=== PATIENT | male | born 1945 | race Caucasian/White ===

== ENCOUNTER 2017-11-13 15:10 | Emergency (ER) | payer MEDICARE, OTHER ==
[2017-11-13 15:18] VITALS: BP 159/82
[2017-11-13] MEDS ORDERED: Sodium Chloride 0.9% 10 ML Syringe FLUSH PRN (15:25)
[2017-11-13] MEDS ORDERED: Vancomycin 500 MG SDV IV ONE (15:34)
--- NOTE | 2017-11-13 16:08 | EDM.PDOC ---
ED HPI GENERAL MEDICAL PROBLEM - General Chief Complaint: Lower Extremity Injury/Pain Stated Complaint: RT LEG Time Seen by Provider: 11/13/17 16:09 Source of Information: Reports: Patient, Old Records, RN, RN Notes Reviewed History Limitations: Reports: No Limitations - History of Present Illness INITIAL COMMENTS - FREE TEXT/NARRATIVE: Patient presents to the ER with redness and increased warmth of his lower right leg. Patient noticed a flat, erythematous area of skin on his anterior right leg , that has increased in diameter in the last 24 hours. Patient is concerned about cellulitis with his history of Type 2 Diabetes mellitus and previous cellulitis infections. Denies fever, chills, and SOB. Onset: Sudden Onset Date: 11/12/17 Duration: Hour(s):, Getting Worse Location: Reports: Lower Extremity, Right Quality: Reports: Burning Severity: Moderate Improves with: Reports: None Worsens with: Reports: None Associated Symptoms: Reports: No Other Symptoms - Related Data Allergies Allergy/AdvReac Type Severity Reaction Status Date / Time acetaminophen [From Vicodin] Allergy Cannot Verified 11/13/17 16:05 Remember clonidine Allergy Cannot Verified 11/13/17 16:05 Remember hydrocodone Allergy Cannot Verified 11/13/17 16:05 Remember theophylline [From Pedro-Dur] Allergy Cannot Verified 11/13/17 16:06 Remember artificial sweeteners Allergy Cannot Uncoded 11/13/17 16:05 Remember Home Meds: Home Meds Glimepiride 4 mg PO DAILY 02/13/14 [History] Allopurinol [Zyloprim] 300 mg PO DAILY 11/13/17 [History] Bumetanide 2 mg PO DAILY 11/13/17 [History] Gabapentin [Neurontin] 600 mg PO TID 11/13/17 [History] Insulin Aspart [Novolog Flexpen] 10 units SUBCUT TID 11/13/17 [History] Insulin Detemir [Levemir Flextouch] 25 units SUBCUT DAILY 11/13/17 [History] Multivitamin [Multi-Vitamin Daily] 1 tab PO DAILY 11/13/17 [History] Sennosides [Senokot] 2 tab PO DAILY 11/13/17 [History] Triamterene/Hydrochlorothiazid [Triamterene-HCTZ 37.5-25 MG] 1 tab PO DAILY [History] Valsartan 320 mg PO DAILY 11/13/17 [History] Warfarin Sodium [Jantoven] 5 mg PO ASDIRECTED 11/13/17 [History] oxyCODONE HCl/Acetaminophen [Endocet 10-325 mg Tablet] 1 - 2 tab PO Q4HR PRN [History] Past Medical History HEENT History: Reports: Impaired Vision Cardiovascular History: Reports: Hypertension Respiratory History: Reports: SOB Gastrointestinal History: Reports: Chronic Constipation Genitourinary History: Reports: None Musculoskeletal History: Reports: Back Pain, Chronic, Osteoarthritis Neurological History: Reports: Neuropathy, Diabetic Psychiatric History: Reports: Anxiety Endocrine/Metabolic History: Reports: Diabetes, Type II, Obesity/BMI 30+ Hematologic History: Reports: Anticoagulation Therapy (INR 2.5 11/11/17) Immunologic History: Reports: Other (See Below) (Gout) Dermatologic History: Reports: Cellulitis - Past Surgical History GI Surgical History: Reports: Appendectomy, Cholecystectomy, Hernia, Abdominal Musculoskeletal Surgical History: Reports: Knee Replacement (x2) Social & Family History - Family History Family Medical History: Noncontributory - Tobacco Use Smoking Status *Q: Never Smoker Second Hand Smoke Exposure: No - Caffeine Use Caffeine Use: Reports: Coffee - Recreational Drug Use Recreational Drug Use: No - Living Situation & Occupation Living situation: Reports: , with Family Occupation: Retired Review of Systems - Review of Systems Review Of Systems: ROS reveals no pertinent complaints other than HPI. ED EXAM, GENERAL - Physical Exam Exam: See Below Exam Limited By: No Limitations General Appearance: Alert, WD/WN, No Apparent Distress Eye Exam: Bilateral Eye: EOMI, Normal Inspection Ears: Normal External Exam, Normal Canal, Hearing Grossly Normal, Normal TMs Ear Exam: Bilateral Ear: Auricle Normal, Canal Normal, TM normal Nose: Normal Inspection, Normal Mucosa, No Blood Throat/Mouth: Normal Inspection, Normal Lips, Normal Teeth, Normal Gums, Normal Oropharynx, Normal Voice, No Airway Compromise Head: Atraumatic, Normocephalic Neck: Normal Inspection, Supple, Non-Tender, Full Range of Motion Respiratory/Chest: No Respiratory Distress, Lungs Clear, Normal Breath Sounds, No Accessory Muscle Use, Chest Non-Tender, Wheezing (occasional wheeze) Cardiovascular: Normal Peripheral Pulses, Regular Rate, Rhythm, Other (Edema of Rt and L leg) GI/Abdominal: Normal Bowel Sounds, Soft, Non-Tender (Male) Exam: Deferred (not indicated ) Rectal (Males) Exam: Deferred (not indicated ) Back Exam: Normal Inspection, Full Range of Motion Extremities: Normal Inspection, Pedal Edema, Redness (lower right leg, increased warmth compared to left leg ) Neurological: Alert, Oriented, Normal Cognition, No Motor/Sensory Deficits Psychiatric: Normal Affect, Normal Mood Skin Exam: Warm, Dry, Increased Warmth (lower right leg ) Lymphatic: No Adenopathy Course - Vital Signs Last Recorded V/S: Last Vital Signs Temp 36.5 C 11/13/17 15:17 Pulse 83 11/13/17 15:17 Resp 20 11/13/17 15:17 BP 159/82 H 11/13/17 15:17 Pulse Ox 94 L 11/13/17 15:17 - Orders/Labs/Meds Orders: Active Orders 24 hr Category Date Time Status Peripheral IV Care [RC] . DIRECTED Care 11/13/17 15:25 Active CULTURE BLOOD [BC] Stat Lab 11/13/17 15:35 Received CULTURE BLOOD [BC] Stat Lab 11/13/17 15:41 Received Sodium Chloride 0.9% [Saline Flush] Med 11/13/17 15:25 Active 10 ml FLUSH ASDIRECTED PRN Blood Culture x2 Reflex Set [OM.PC] Stat Oth 11/13/17 15:25 Ordered Peripheral IV Insertion Adult [OM.PC] Stat Oth 11/13/17 15:25 Ordered Medication Orders Sodium Chloride (Saline Flush) 10 ml FLUSH ASDIRECTED PRN PRN Reason: Keep Vein Open Labs: Laboratory Tests 11/13/17 11/13/17 11/13/17 Range/Units 15:41 15:41 15:41 WBC 12.1 H (5.0-10.0) 10^3/uL RBC 5.21 (4.6-6.2) 10^6/uL Hgb 16.1 (14.0-18.0) g/dL Hct 47.7 (40.0-54.0) % MCV 91.6 (80-100) fL MCH 30.9 (27.0-34.0) pg MCHC 33.8 (33.0-35.0) g/dL Plt Count 218 (150-450) 10^3/uL Neut % (Auto) 59.3 (42.2-75.2) % Lymph % (Auto) 28.9 (20.5-50.1) % [place] % (Auto) 8.6 H (2-8) % Eos % (Auto) 2.3 (1.0-3.0) % Baso % (Auto) 0.9 (0.0-1.0) % PT 27.9 H (9.0-12.0) SEC INR 2.8 H (0.9-1.2) Sodium 136 (135-145) mmol/L Potassium 3.3 L (3.6-5.0) mmol/L Chloride 97 L (101-111) mmol/L Carbon Dioxide 28.0 (21.0-31.0) mmol/L Anion Gap 14.3 BUN 19 H (7-18) mg/dL Creatinine 1.3 (0.6-1.3) mg/dL Est Cr Clr Drug Dosing 53.03 mL/min Estimated GFR (MDRD) 54 BUN/Creatinine Ratio 14.61 Glucose 122 H (74-105) mg/dL Lactic Acid (0.5-2.2) mmol/L Calcium 9.4 (8.4-10.2) mg/dl Total Bilirubin 0.2 (0.2-1.0) mg/dL AST 35 (10-42) IU/L ALT 28 (10-60) IU/L Alkaline Phosphatase 75 (42-121) IU/L C-Reactive Protein (0.0-1.3) mg/dL Total Protein 7.3 (6.7-8.2) g/dl Albumin 4.0 (3.2-5.5) g/dl Globulin 3.3 Albumin/Globulin Ratio 1.21 11/13/17 11/13/17 Range/Units 15:41 15:41 WBC (5.0-10.0) 10^3/uL RBC (4.6-6.2) 10^6/uL Hgb (14.0-18.0) g/dL Hct (40.0-54.0) % MCV (80-100) fL MCH (27.0-34.0) pg MCHC (33.0-35.0) g/dL Plt Count (150-450) 10^3/uL Neut % (Auto) (42.2-75.2) % Lymph % (Auto) (20.5-50.1) % [place] % (Auto) (2-8) % Eos % (Auto) (1.0-3.0) % Baso % (Auto) (0.0-1.0) % PT (9.0-12.0) SEC INR (0.9-1.2) Sodium (135-145) mmol/L Potassium (3.6-5.0) mmol/L Chloride (101-111) mmol/L Carbon Dioxide (21.0-31.0) mmol/L Anion Gap BUN (7-18) mg/dL Creatinine (0.6-1.3) mg/dL Est Cr Clr Drug Dosing mL/min Estimated GFR (MDRD) BUN/Creatinine Ratio Glucose (74-105) mg/dL Lactic Acid 1.3 (0.5-2.2) mmol/L Calcium (8.4-10.2) mg/dl Total Bilirubin (0.2-1.0) mg/dL AST (10-42) IU/L ALT (10-60) IU/L Alkaline Phosphatase (42-121) IU/L C-Reactive Protein 4.1 H (0.0-1.3) mg/dL Total Protein (6.7-8.2) g/dl Albumin (3.2-5.5) g/dl Globulin Albumin/Globulin Ratio Meds: Medications Generic Name Dose Route Start Last Admin Trade Name Freq PRN Reason Stop Dose Admin Sodium Chloride 10 ml 11/13/17 15:25 Saline Flush FLUSH ASDIRECTED PRN Keep Vein Open Discontinued Medications Generic Name Dose Route Start Last Admin Trade Name Freq PRN Reason Stop Dose Admin Vancomycin HCl 1,700 mg 11/13/17 15:34 11/13/17 15:59 Vancomycin IV 11/13/17 15:35 1,700 mg ONETIME ONE Administration Departure - Departure Time of Disposition: 17:30 Disposition: Home, Self-Care 01 Condition: Good Clinical Impression: Cellulitis of right lower leg - Discharge Information Instructions: Cellulitis, Adult, [id number] Forms: ED Department Discharge Additional Instructions: Rx: Cephalexin 500mg Rx: Doxycycline 100mg Follow up at your primary clinic for recheck in 2 to 3 days. Return to ER if worse at any time. - My Orders Last 24 Hours: My Active Orders 11/13/17 15:25 Peripheral IV Care [RC] . DIRECTED Sodium Chloride 0.9% [Saline Flush] 10 ml FLUSH ASDIRECTED PRN Blood Culture x2 Reflex Set [OM.PC] Stat Peripheral IV Insertion Adult [OM.PC] Stat 11/13/17 15:35 CULTURE BLOOD [BC] Stat 11/13/17 15:41 CULTURE BLOOD [BC] Stat - Assessment/Plan Last 24 Hours: My Active Orders 11/13/17 15:25 Peripheral IV Care [RC] . DIRECTED Sodium Chloride 0.9% [Saline Flush] 10 ml FLUSH ASDIRECTED PRN Blood Culture x2 Reflex Set [OM.PC] Stat Peripheral IV Insertion Adult [OM.PC] Stat 11/13/17 15:35 CULTURE BLOOD [BC] Stat 11/13/17 15:41 CULTURE BLOOD [BC] Stat
[2017-11-13 16:12] LABS: ANION GAP 14.3
== END 2017-11-13 18:07 | disposition home or self-care (01) ==
LOC: DL.ED 15:10
DX: L03.115 Cellulitis of right lower limb (principal); I10 Essential (primary) hypertension; E11.40 Type 2 diabetes mellitus with diabetic neuropathy, unspecified; Z79.01 Long term (current) use of anticoagulants; Z79.4 Long term (current) use of insulin; Z79.899 Other long term (current) drug therapy; Z88.5 Allergy status to narcotic agent; Z88.6 Allergy status to analgesic agent; Z88.8 Allergy status to other drugs, medicaments and biological substances; Z91.018 Allergy to other foods
CPT/HCPCS: 36415; 80053; 83605; 85025; 85610; 86140; 87040; 96374; 99283; J3370; 99284

== ENCOUNTER → 2019-02-09 | Outpatient (CLI) | payer MEDICARE, OTHER ==
[2019-02-09 14:34] LABS: ANION GAP 15.8; CHLORIDE,CL 100 mmol/L (101-111); SODIUM,NA 138 mmol/L (135-145)
== END ==
LOC: DL.CLIN 11:50
PROVIDERS: ATTEND Nurse Practitioner
DX: Z12.5 Encounter for screening for malignant neoplasm of prostate (principal); E11.9 Type 2 diabetes mellitus without complications; I10 Essential (primary) hypertension
CPT/HCPCS: 36415; 80053; 80061; 81003; 82043; 82570; 83036; 85025; G0103

== ENCOUNTER 2023-02-06 13:38 | Emergency (ER) | payer MEDICARE, OTHER ==
[2023-02-06 13:55] VITALS: BP 89/68; PULSE 71
[2023-02-06 14:34] LABS: AMPHETAMINES,URINE NEGATIVE (NEGATIVE); BARBITURATES,URINE NEGATIVE (NEGATIVE); MDMA (ECSTASY), URINE NEGATIVE (NEGATIVE); METHADONE,URINE NEGATIVE (NEGATIVE); METHAMPHETAMINES,URINE NEGATIVE (NEGATIVE); OPIATES,URINE NEGATIVE (NEGATIVE); OXYCODONE,URINE POSITIVE (NEGATIVE); PHENCYCLIDINE,URINE NEGATIVE (NEGATIVE); TCA,URINE NEGATIVE (NEGATIVE)
[2023-02-06 14:35] LABS: BENZODIAZEPINE,URINE POSITIVE (NEGATIVE)
[2023-02-06 14:42] LABS: PTT,PARTIAL THROMBOPLSTIN TIME 48.1 SEC (22.0-34.0)
[2023-02-06 14:45] LABS: ANION GAP 14.8 mEq/L (7-13); CHLORIDE,CL 97 mmol/L (98-107); SODIUM,NA 137 mmol/L (136-145)
[2023-02-06 14:47] LABS: ESTIMATED GFR 12 mL/min (>=60)
[2023-02-06] MEDS: Sodium Chloride 0.9% 1,000 ML IV ONE ×2 (15:48→16:00)
[2023-02-06] MEDS: Sodium Chloride 0.9% 10 ML Syringe FLUSH PRN (15:48)
[2023-02-06] MEDS: cefTRIAXone 1 GM Vial IVPUSH ONE (17:04)
== END 2023-02-06 18:01 ==
LOC: DL.ED 13:38
DX: N17.9 Acute kidney failure, unspecified (principal); G93.40 Encephalopathy, unspecified; I10 Essential (primary) hypertension; E11.40 Type 2 diabetes mellitus with diabetic neuropathy, unspecified; E66.9 Obesity, unspecified; Z20.822 Contact with and (suspected) exposure to COVID-19; Z88.5 Allergy status to narcotic agent; Z88.8 Allergy status to other drugs, medicaments and biological substances; Z88.6 Allergy status to analgesic agent; Z91.018 Allergy to other foods; Z79.01 Long term (current) use of anticoagulants; Z79.4 Long term (current) use of insulin; Z68.41 Body mass index [BMI] 40.0-44.9, adult
CPT/HCPCS: 36415; 70450; 71250; 72125; 74176; 80053; 80305-QW; 80307; 81001; 82140; 82947; 83605; 83880; 84145; 84484; 85025; 85610; 85730; 87040; 93005; 93010; 94762; 96361; 96374; 99285; 99285-25; C1758; J0696; J3490; J7030; U0002

== ENCOUNTER 2023-03-05 10:22 | Emergency (ER) | payer MEDICARE, OTHER ==
[2023-03-05 10:41] VITALS: PULSE 72
[2023-03-05] MEDS ORDERED: hydrALAZINE 25 MG Tab PO ONE (10:54)
[2023-03-05 11:30] VITALS: BP 167/93
== END 2023-03-05 11:39 | disposition home or self-care (01) ==
LOC: DL.ED 10:22
DX: I10 Essential (primary) hypertension (principal); E11.40 Type 2 diabetes mellitus with diabetic neuropathy, unspecified; E66.9 Obesity, unspecified; Z68.36 Body mass index [BMI] 36.0-36.9, adult; Z79.01 Long term (current) use of anticoagulants; Z86.16 Personal history of COVID-19; Z88.8 Allergy status to other drugs, medicaments and biological substances; Z88.6 Allergy status to analgesic agent; Z88.5 Allergy status to narcotic agent; Z91.048 Other nonmedicinal substance allergy status; Z79.899 Other long term (current) drug therapy; Z79.4 Long term (current) use of insulin
CPT/HCPCS: 99283; A9270-GY

== ENCOUNTER 2024-06-15 01:16 | Inpatient (IN) | payer MEDICARE, OTHER ==
[2024-06-15 02:30] LABS: BASOPHILS PERCENT AUTO 0.6 % (0.0-1.0); EOSINOPHILS PERCENT AUTO 17.5 % (1.0-3.0); HEMATOCRIT 39.5 % (40.0-54.0); HEMOGLOBIN 13.1 g/dL (14.0-18.0); LYMPHOCYTES PERCENT AUTO 20.7 % (20.5-50.1); MEAN CORPUSCULAR HEMOGLOBIN 30.9 pg (27.0-34.0); MEAN CORPUSCULAR HGB CONC 33.2 g/dL (33.0-35.0); MEAN CORPUSCULAR VOLUME 93.2 fL (80-100); NEUTROPHILS PERCENT AUTO 52.2 % (42.2-75.2); PLATELET COUNT,PLT 210 10^3/uL (150-450); RED BLOOD CELL COUNT 4.24 10^6/uL (4.6-6.2); WHITE BLOOD CELL COUNT,WBC 13.8 10^3/uL (5.0-10.0)
[2024-06-15] MEDS: Diphtheria,Pertussis(Acell),Tetanus Vaccine 0.5 ML Syringe IM ONE (02:43)
[2024-06-15 02:45] LABS: INR 2.1 (0.9-1.2)
[2024-06-15 02:53] LABS: LACTIC ACID 0.7 mmol/L (0.4-2.0)
[2024-06-15 02:56] LABS: ALBUMIN 2.8 g/dL (3.4-5.0); ANION GAP 7.1 mEq/L (7-13); BILIRUBIN TOTAL 0.2 mg/dL (0.2-1.0); BUN/CREATININE RATIO 16.2 (No establ ref range); C-REACTIVE PROTEIN 4.32 ng/dL (<=0.50); CREATININE 1.42 mg/dL (0.70-1.30); EST CRCL DRUG DOSING (CG) 42.87 mL/min; MAGNESIUM 1.4 mg/dL (1.8-2.4); POTASSIUM,K 4.1 mmol/L (3.5-5.1); PROTEIN TOTAL,TP 6.2 g/dL (6.4-8.2)
[2024-06-15 02:57] LABS: A/G RATIO 0.82
[2024-06-15] MEDS: Piperacillin/Tazobactam 4.5 GM in Sodium Chloride 0.9% 100 ML IV ONE (03:00)
[2024-06-15] MEDS: Magnesium Sulfate/Water 2 GM in Premix Bag 1 BAG IV ONE (03:28)
[2024-06-15] MEDS ORDERED: Albuterol/Ipratropium 3.0-0.5 MG/3 ML Neb Soln NEB PRN (03:47)
[2024-06-15] MEDS ORDERED: Naloxone 2 MG/2 ML Syringe IVPUSH PRN (03:47)
[2024-06-15] MEDS ORDERED: HYDROmorphone 0.5 MG/0.5 ML Syringe IVPUSH PRN (03:47)
[2024-06-15] MEDS ORDERED: Polyethylene Glycol 3350 Powder 17 GM Packet PO PRN (03:47)
[2024-06-15] MEDS ORDERED: Melatonin 3 MG Tab PO PRN (03:47)
[2024-06-15] MEDS ORDERED: Magnesium Hydroxide 400 MG/5 ML Susp 30 ML Cup PO PRN (03:47)
[2024-06-15] MEDS ORDERED: Promethazine 25 MG Supp RECTAL PRN (03:47)
[2024-06-15] MEDS ORDERED: Ondansetron 4 MG/2 ML SDV IVPUSH PRN (03:47)
[2024-06-15] MEDS ORDERED: QUININE SULFATE 324 MG PO SCH (04:00)
[2024-06-15] MEDS ORDERED: Magnesium Sulfate/D5W 1 GM/100 ML BAG IV ONE (04:22)
[2024-06-15 04:42] LABS: T4 FREE 1.14 ng/dL (0.76-1.46); TSH ULTRASENSITIVE 2.05 uIU/mL (0.36-3.74)
[2024-06-15 05:00] LABS: HEMOGLOBIN A1C 8.3 % (<5.7)
[2024-06-15] MEDS: oxyCODONE ER 10 MG TAB.ER PO SCH (05:20)
[2024-06-15] MEDS: Ampicillin/Sulbactam Na 1.5 GM in Sodium Chloride 0.9% 100 ML IV SCH (05:28)
[2024-06-15] MEDS: Vancomycin 2 GM in Sodium Chloride 0.9% 500 ML IV ONE (05:53)
[2024-06-15 06:20] LABS: HEMATOCRIT 38.8 % (40.0-54.0); HEMOGLOBIN 13.1 g/dL (14.0-18.0); MEAN CORPUSCULAR HEMOGLOBIN 31.6 pg (27.0-34.0); MEAN CORPUSCULAR HGB CONC 33.8 g/dL (33.0-35.0); MEAN CORPUSCULAR VOLUME 93.5 fL (80-100); PLATELET COUNT,PLT 214 10^3/uL (150-450); RED BLOOD CELL COUNT 4.15 10^6/uL (4.6-6.2); WHITE BLOOD CELL COUNT,WBC 11.9 10^3/uL (5.0-10.0)
[2024-06-15 06:21] LABS: BASOPHILS PERCENT AUTO 0.6 % (0.0-1.0); EOSINOPHILS PERCENT AUTO 15.4 % (1.0-3.0); LYMPHOCYTES PERCENT AUTO 19.3 % (20.5-50.1); MONOCYTES PERCENT AUTO 8.1 % (2-8); NEUTROPHILS PERCENT AUTO 56.6 % (42.2-75.2)
[2024-06-15] MEDS: Albumin Human 50 GM in Premix Bag 1 BAG IV ONE (06:25)
[2024-06-15 06:47] LABS: ALBUMIN 2.7 g/dL (3.4-5.0); ANION GAP 10.6 mEq/L (7-13); BILIRUBIN TOTAL 0.4 mg/dL (0.2-1.0); BUN/CREATININE RATIO 14.5 (No establ ref range); C-REACTIVE PROTEIN 4.31 ng/dL (<=0.50); CALCIUM 9.2 mg/dL (8.5-10.1); CREATININE 1.31 mg/dL (0.70-1.30); EST CRCL DRUG DOSING (CG) 47.23 mL/min; MAGNESIUM 2.3 mg/dL (1.8-2.4); POTASSIUM,K 3.6 mmol/L (3.5-5.1); PROTEIN TOTAL,TP 6.2 g/dL (6.4-8.2)
[2024-06-15 06:51] LABS: A/G RATIO 0.77
[2024-06-15 07:03] LABS: BAND PERCENT MAN 1 %; LYMPHOCYTES PERCENT MAN 12 % (20-50); SEG NEUTROPHILS PERCENT MAN 58 % (42-75)
[2024-06-15 07:04] LABS: BASOPHILS PERCENT MAN 1; EOSINOPHILS PERCENT MAN 21 % (1-3); MONOCYTES PERCENT MAN 7 % (2-8)
[2024-06-15 07:40] LABS: INR 1.9 (0.9-1.2)
[2024-06-15] MEDS: Escitalopram 10 MG Tab PO SCH (09:22)
[2024-06-15] MEDS: Allopurinol 300 MG Tab PO SCH (09:23)
[2024-06-15] MEDS: Gabapentin 300 MG Cap PO SCH (09:23)
[2024-06-15] MEDS: Tamsulosin 0.4 MG Cap.ER PO SCH (09:23)
[2024-06-15] MEDS: traZODone 50 MG Tab PO SCH (09:24)
[2024-06-15] MEDS: Insulin Lispro 100 Units/ML 3 ML Vial SUBCUT SCH (09:24)
[2024-06-15] MEDS: Insulin Glarg,Human.Rec.Analog 100 Unit/ML 10 ML Vial SUBCUT SCH (09:25)
[2024-06-15] MEDS: Sodium Chloride 0.9% 10 ML Syringe FLUSH SCH (09:29)
[2024-06-15] MEDS: Warfarin 2 MG Tab PO ONE (13:47)
[2024-06-15] MEDS: Warfarin** 1 MG TABLET PO ONE (13:47)
[2024-06-15] MEDS: Warfarin 5 MG Tab PO SCH (14:38)
[2024-06-15] MEDS: Isopropyl Myristate/Mineral Oil/Water Lotion 240 ML Bottle TOP SCH (15:30)
[2024-06-16] MEDS: VANCOmycin 1.5 GM/300 ML 300 ML IV SCH (06:33)
[2024-06-16 06:40] LABS: BASOPHILS PERCENT AUTO 0.7 % (0.0-1.0); EOSINOPHILS PERCENT AUTO 18.3 % (1.0-3.0); HEMATOCRIT 39.1 % (40.0-54.0); HEMOGLOBIN 12.8 g/dL (14.0-18.0); LYMPHOCYTES PERCENT AUTO 24.3 % (20.5-50.1); MEAN CORPUSCULAR HEMOGLOBIN 30.8 pg (27.0-34.0); MEAN CORPUSCULAR HGB CONC 32.7 g/dL (33.0-35.0); MEAN CORPUSCULAR VOLUME 94.2 fL (80-100); MONOCYTES PERCENT AUTO 7.5 % (2-8); NEUTROPHILS PERCENT AUTO 49.2 % (42.2-75.2); PLATELET COUNT,PLT 194 10^3/uL (150-450); RED BLOOD CELL COUNT 4.15 10^6/uL (4.6-6.2); WHITE BLOOD CELL COUNT,WBC 10.9 10^3/uL (5.0-10.0)
[2024-06-16 06:52] LABS: INR 1.8 (0.9-1.2)
[2024-06-16 07:00] LABS: ALBUMIN 2.9 g/dL (3.4-5.0); ANION GAP 8.4 mEq/L (7-13); BILIRUBIN TOTAL 0.5 mg/dL (0.2-1.0); BUN/CREATININE RATIO 13.3 (No establ ref range); C-REACTIVE PROTEIN 3.51 ng/dL (<=0.50); CALCIUM 9.1 mg/dL (8.5-10.1); CREATININE 1.2 mg/dL (0.70-1.30); EST CRCL DRUG DOSING (CG) 51.56 mL/min; POTASSIUM,K 4.4 mmol/L (3.5-5.1); PROTEIN TOTAL,TP 6.2 g/dL (6.4-8.2)
[2024-06-16 07:01] LABS: A/G RATIO 0.88
[2024-06-16] MEDS: Sodium Chloride 0.9% 10 ML Syringe FLUSH PRN (13:21)
[2024-06-16] MEDS: Warfarin 5 MG Tab PO ONE (13:36)
[2024-06-16] MEDS: Piperacillin/Tazobactam 4.5 GM in Sodium Chloride 0.9% 100 ML IV ONE (14:27)
[2024-06-16] MEDS: Piperacillin/Tazobactam 3.375 GM in Sodium Chloride 0.9% 100 ML IV SCH (14:32)
[2024-06-16] MEDS: Piperacillin/Tazobactam 4.5 GM in Sodium Chloride 0.9% 100 ML IV SCH (14:33)
[2024-06-16] MEDS: Gadobenate Dimeglumine 529 MG/ML 20 ML SDV IVPUSH ONE (16:30)
[2024-06-16] MEDS: Acetaminophen 325 MG Tab PO PRN (16:54)
[2024-06-16] MEDS: Sennosides/Docusate Sodium 50-8.6 MG Tab PO PRN (20:56)
[2024-06-16] MEDS ORDERED: traZODone 50 MG Tab PO SCH (21:00)
[2024-06-16] MEDS: hydrALAZINE 25 MG Tab PO SCH (23:18)
[2024-06-16] MEDS: traZODone 50 MG Tab PO SCH (23:18)
[2024-06-17] MEDS: oxyCODONE ER 10 MG TAB.ER PO SCH (06:13)
[2024-06-17 06:19] LABS: BASOPHILS PERCENT AUTO 0.6 % (0.0-1.0); EOSINOPHILS PERCENT AUTO 15.5 % (1.0-3.0); HEMATOCRIT 40.5 % (40.0-54.0); HEMOGLOBIN 13.4 g/dL (14.0-18.0); LYMPHOCYTES PERCENT AUTO 21.9 % (20.5-50.1); MEAN CORPUSCULAR HEMOGLOBIN 30.9 pg (27.0-34.0); MEAN CORPUSCULAR HGB CONC 33.1 g/dL (33.0-35.0); MEAN CORPUSCULAR VOLUME 93.5 fL (80-100); PLATELET COUNT,PLT 224 10^3/uL (150-450); RED BLOOD CELL COUNT 4.33 10^6/uL (4.6-6.2); WHITE BLOOD CELL COUNT,WBC 13.3 10^3/uL (5.0-10.0)
[2024-06-17 06:33] LABS: INR 2.5 (0.9-1.2)
[2024-06-17 06:38] LABS: A/G RATIO 0.85; ALBUMIN 2.9 g/dL (3.4-5.0); ANION GAP 11.1 mEq/L (7-13); BILIRUBIN TOTAL 0.6 mg/dL (0.2-1.0); BUN/CREATININE RATIO 11.2 (No establ ref range); C-REACTIVE PROTEIN 2.05 ng/dL (<=0.50); CALCIUM 9.2 mg/dL (8.5-10.1); CREATININE 1.07 mg/dL (0.70-1.30); EST CRCL DRUG DOSING (CG) 57.82 mL/min; MAGNESIUM 1.7 mg/dL (1.8-2.4); POTASSIUM,K 4.1 mmol/L (3.5-5.1); PROTEIN TOTAL,TP 6.3 g/dL (6.4-8.2)
[2024-06-17] MEDS: hydrALAZINE 25 MG Tab PO SCH (09:08)
[2024-06-17] MEDS: Insulin Lispro 100 Units/ML 3 ML Vial SUBCUT SCH (09:11)
[2024-06-17] MEDS ORDERED: Warfarin 2.5 MG Tab PO SCH (14:00)
[2024-06-17] MEDS ORDERED: Glucagon,Human Recombinant 1 MG Vial IM PRN (16:09)
[2024-06-17] MEDS ORDERED: 50% Dextrose in Water 50 ML Syringe IVPUSH PRN (16:09)
[2024-06-17] MEDS: Tamsulosin 0.4 MG Cap.ER PO SCH (21:41)
[2024-06-17] MEDS: Lidocaine 5% 700 MG Patch TOP SCH (21:47)
[2024-06-18] MEDS: Insulin Glarg,Human.Rec.Analog 100 Unit/ML 10 ML Vial SUBCUT SCH (03:48)
[2024-06-18 06:21] LABS: INR 3.6 (0.9-1.2); PROTHROMBIN TIME 34.6 SEC (9.0-12.0)
[2024-06-18 06:24] LABS: BASOPHILS PERCENT AUTO 0.6 % (0.0-1.0); EOSINOPHILS PERCENT AUTO 14.4 % (1.0-3.0); HEMATOCRIT 41.1 % (40.0-54.0); HEMOGLOBIN 13.7 g/dL (14.0-18.0); LYMPHOCYTES PERCENT AUTO 20.6 % (20.5-50.1); MEAN CORPUSCULAR HEMOGLOBIN 31.1 pg (27.0-34.0); MEAN CORPUSCULAR HGB CONC 33.3 g/dL (33.0-35.0); MEAN CORPUSCULAR VOLUME 93.4 fL (80-100); MONOCYTES PERCENT AUTO 9.2 % (2-8); NEUTROPHILS PERCENT AUTO 55.2 % (42.2-75.2); PLATELET COUNT,PLT 222 10^3/uL (150-450); WHITE BLOOD CELL COUNT,WBC 14.5 10^3/uL (5.0-10.0)
[2024-06-18 06:26] LABS: ANION GAP 10.3 mEq/L (7-13); BILIRUBIN TOTAL 0.7 mg/dL (0.2-1.0); BUN/CREATININE RATIO 8.3 (No establ ref range); C-REACTIVE PROTEIN 3.61 ng/dL (<=0.50); CALCIUM 9.4 mg/dL (8.5-10.1); CREATININE 1.08 mg/dL (0.70-1.30); EST CRCL DRUG DOSING (CG) 57.29 mL/min; MAGNESIUM 1.7 mg/dL (1.8-2.4); POTASSIUM,K 4.3 mmol/L (3.5-5.1); PROTEIN TOTAL,TP 6.6 g/dL (6.4-8.2)
[2024-06-18 06:32] LABS: A/G RATIO 0.83
[2024-06-18] MEDS: hydrALAZINE 25 MG Tab PO SCH (14:40)
[2024-06-18] MEDS: Hydrochlorothiazide 25 MG Tab PO SCH (14:40)
[2024-06-18] MEDS: Magnesium Sulfate/Water 2 GM in Premix Bag 1 BAG IV SCH (14:41)
[2024-06-18] MEDS: hydrALAZINE 20 MG/ML SDV IVPUSH PRN (17:45)
[2024-06-19 09:30] LABS: INR 2.7 (0.9-1.2); PROTHROMBIN TIME 26.2 SEC (9.0-12.0)
[2024-06-19] MEDS: Warfarin 2.5 MG Tab PO ONE (13:04)
[2024-06-19 13:06] VITALS: BP 150/63
[2024-06-19 13:22] VITALS: PULSE 69
[2024-06-20] MEDS ORDERED: VANCOmycin 1.5 GM/300 ML 1.5 GM in Premix Bag 1 BAG IV SCH (07:00)
== END 2024-06-19 13:20 | disposition home health service (06) | DRG 638 ==
LOC: DL.ED 01:16 → DL.MS 03:18 → UNDOADMIN 03:22 → DL.MS 03:22
PROVIDERS: ADMIT Internal Medicine; ATTEND Internal Medicine
DX: E11.628 Type 2 diabetes mellitus with other skin complications (principal); I13.0 Hypertensive heart and chronic kidney disease with heart failure and stage 1 through stage 4 chronic kidney disease, or unspecified chronic kidney disease; L03.116 Cellulitis of left lower limb; I10 Essential (primary) hypertension; E11.40 Type 2 diabetes mellitus with diabetic neuropathy, unspecified; I50.9 Heart failure, unspecified; N18.30 Chronic kidney disease, stage 3 unspecified; M10.9 Gout, unspecified; E11.42 Type 2 diabetes mellitus with diabetic polyneuropathy; E83.42 Hypomagnesemia; E88.09 Other disorders of plasma-protein metabolism, not elsewhere classified; E11.51 Type 2 diabetes mellitus with diabetic peripheral angiopathy without gangrene; R06.89 Other abnormalities of breathing; D72.829 Elevated white blood cell count, unspecified; E11.621 Type 2 diabetes mellitus with foot ulcer; L97.529 Non-pressure chronic ulcer of other part of left foot with unspecified severity; R79.1 Abnormal coagulation profile; R00.1 Bradycardia, unspecified; G89.29 Other chronic pain; M54.9 Dorsalgia, unspecified; M19.90 Unspecified osteoarthritis, unspecified site; N40.0 Benign prostatic hyperplasia without lower urinary tract symptoms; F32.A Depression, unspecified; F41.9 Anxiety disorder, unspecified; Z68.34 Body mass index [BMI] 34.0-34.9, adult; I48.0 Paroxysmal atrial fibrillation; E11.22 Type 2 diabetes mellitus with diabetic chronic kidney disease; E66.9 Obesity, unspecified; K59.09 Other constipation; Z88.5 Allergy status to narcotic agent; Z88.8 Allergy status to other drugs, medicaments and biological substances; Z79.4 Long term (current) use of insulin; Z79.01 Long term (current) use of anticoagulants; Z86.16 Personal history of COVID-19; Z90.89 Acquired absence of other organs; Z90.49 Acquired absence of other specified parts of digestive tract; Z96.659 Presence of unspecified artificial knee joint; Z86.711 Personal history of pulmonary embolism; Z79.899 Other long term (current) drug therapy
CPT/HCPCS: 36415; 73630; 80053; 83036; 83605; 83735; 83880; 84439; 84443; 85025; 85610; 86140; 90471; 90715; 96365; 99284; J2543; J3490; 73700-LT; 73720-LT; 80202; 82947; 87070; 87077; 87186; 87205; 93306; 99223; 99232; 99239; A9270-GY; A9577; J0295; J0360; J1815-GY; J3370; J3372; J3475; J7040; J7050; P9047

== ENCOUNTER 2025-05-08 19:37 | Emergency (ER) | payer MEDICARE, OTHER ==
[2025-05-08] MEDS: Lidocaine 1% with EPINEPHrine 1:100,000 20 ML MDV INJECT ONE (19:45)
[2025-05-08 19:58] VITALS: BP 137/75; PULSE 88
== END 2025-05-08 20:25 | disposition home or self-care (01) ==
LOC: DL.ED 19:37
DX: S81.811A Laceration without foreign body, right lower leg, initial encounter (principal); I11.0 Hypertensive heart disease with heart failure; I50.9 Heart failure, unspecified; E11.9 Type 2 diabetes mellitus without complications; E66.9 Obesity, unspecified; M19.90 Unspecified osteoarthritis, unspecified site; Z90.49 Acquired absence of other specified parts of digestive tract; Z79.01 Long term (current) use of anticoagulants; Z86.16 Personal history of COVID-19; Z88.5 Allergy status to narcotic agent; Z88.8 Allergy status to other drugs, medicaments and biological substances; Z79.899 Other long term (current) drug therapy; Z68.36 Body mass index [BMI] 36.0-36.9, adult; Z79.4 Long term (current) use of insulin; X58.XXXA Exposure to other specified factors, initial encounter
CPT/HCPCS: 12002; 99283; J2004